=== PATIENT | male | born 1955 | race Asian ===

== ENCOUNTER 2022-06-13 17:35 | Emergency (ER) | payer MEDICARE, MEDICAID, SELFPAY ==
--- NOTE | ~2022-06-13 | XR_ITS ---
EXAMINATION: XR CHEST CLINICAL INFORMATION: Shortness of breath COMPARISON: Chest x-ray 05/25/2020 TECHNIQUE: Frontal view of the chest was obtained. FINDINGS: No airspace consolidation, pleural effusion, or pneumothorax. Similar lobulated extrapleural soft tissue thickening or fat deposition along the lower right hemithorax laterally. Cardiac silhouette appears borderline to mildly enlarged. No evidence pulmonary edema. No acute osseous injury. XR/XR chest 1V IMPRESSION: 1. No acute pulmonary process.
--- NOTE | ~2022-06-13 | CT_ITS ---
EXAMINATION: CT ABDOMEN AND PELVIS WITHOUT CONTRAST CLINICAL INFORMATION: Right flank/lower back pain. History of stones. COMPARISON: None TECHNIQUE: Multidetector volumetric imaging was performed from the superior aspect of the liver through the pubic symphysis. Sagittal and coronal reformatted images were obtained on the technologist's workstation. This CT examination was performed using dose optimization techniques as appropriate, variously including the following: *Automated exposure control *Adjustment of mA and/or kV according to patient size (this includes techniques or standardized protocols for targeted exams where dose is matched to indication/reason for exam; i.e. extremities or head) *Use of iterative reconstruction technique DLP: 478 mGy-cm FINDINGS: LUNG BASES: Mild left basilar subsegmental atelectasis. Prominent motion artifact at the lung bases. Small fat-containing Bochdalek hernia on the left side. LIVER, GALLBLADDER, AND BILIARY TREE: Normal hepatic attenuation. Slight prominence of the left liver lobe and caudate. No liver lesion. No biliary ductal dilation. The gallbladder is unremarkable with no evidence of radiopaque gallstones, gallbladder wall thickening, or obvious pericholecystic inflammatory changes. PANCREAS: Unremarkable. SPLEEN: Unremarkable. ADRENAL GLANDS: 2.4 cm left adrenal nodule with attenuation value of 0 Hounsfield units consistent with a lipid rich adenoma. Normal right adrenal gland. KIDNEYS AND URETERS: 6 mm nonobstructing right lower pole renal calculus. No other radiodense renal calculi. No hydronephrosis. No ureteral calculi. No renal lesion. No perinephric collections. BLADDER: Unremarkable. GASTROINTESTINAL TRACT: Small hiatal hernia. No dilated bowel loops. No bowel wall thickening. Normal appendix. No ascites or free air. ABDOMINAL WALL: No significant hernia is appreciated. LYMPH NODES: No lymphadenopathy. VASCULAR: Normal caliber abdominal aorta. Mild atherosclerotic vascular calcifications. PELVIC VISCERA: Unremarkable. OSSEOUS STRUCTURES: No acute fracture or suspicious osseous lesion. Minimal multilevel degenerative disc disease with preserved intervertebral disc heights. CT/CT abdomen pelvis wo IV con IMPRESSION: 1. 6 mm nonobstructing right lower pole renal calculus. No ureteral calculi or hydronephrosis. 2. No acute intra-abdominal process identified. 3. Morphologic features of the liver, which could represent underlying hepatocellular disease or fibrosis. Correlate clinically. 4. Incidental 2.4 cm lipid rich left adrenal adenoma.
--- NOTE | 2022-06-13 17:49 | ED_ITS ---
HPI - General Adult General Chief complaint: Abdominal Pain Stated complaint: R flank pain Time Seen by Provider: 06/13/22 17:48 Source: patient Mode of arrival: ambulatory Limitations: language barrier (Swedish conche operator used ) History of Present Illness HPI narrative: 66-year-old male no known medical history presents to the emergency department with complaints of right-sided flank pain/back pain x2 days worsening. Patient tells me that the pain is localized to his right flank, is intermittent and severe in nature, does not radiate. Patient tells me that he had difficult he is urinating due to the pain and was having difficulty initiating his urinary stream. He tells me that he has had a kidney stone in the past which has required medical management. He denies any back trauma or back surgeries, and denies IV drug abuse. He tells me that this started suddenly without trauma. He denies any recent falls. Unable to tell me what makes the pain better or worse. Patient is wearing a back brace he says it helps the pain a little bit however the pain is still present. Patient also notes that he has been feeling short of breath both at rest and with exertion over the past month, however nothing new. He denies chest pain, nausea, vomiting, abdominal pain, testicular pain, dysuria, headache, dizziness, vision changes, trauma. Urinary/bowel incontinence/retention, saddle paresthesias, numbness or tingling. Related Data Previous Rx's Medication Instructions Recorded cyclobenzaprine 10 mg tablet 10 mg PO BEDTIME PRN muscle spasm 06/13/22 #7 tabs lidocaine 5 % topical patch 1 patch topical DAILY PRN pain #15 06/13/22 ea prednisone 20 mg tablet 20 mg PO DAILY 5 days #5 tabs 06/13/22 Allergies Allergy/AdvReac Type Severity Reaction Status Date / Time No Known Allergies Allergy Unverified 06/25/20 17:00 [No Known Allergies*] Review of Systems Review of Systems: Constitutional : No Weight loss, No Fever, No Chills, No Fatigue, No Malaise ENT/Mouth : No sore throat, No Rhinorrhea Eyes: No Eye Pain, No Swelling, No Redness Cardiovascular : No Chest Pain, + SOB, No Dyspnea on Exertion, No Orthopnea, No Edema, No Palpitations Respiratory : No Cough, No Sputum, No Wheezing Gastrointestinal : No Nausea, No Vomiting, No Diarrhea, No Constipation, No abdominal Pain, No Hematochezia, No Melena Genitourinary : No Dysuria, No Urinary Frequency, No Hematuria, + difficulty voiding Musculoskeletal : No joint pain, No Myalgias, No Joint Swelling, + right flank pain Skin : No Skin Lesions, No rash Neuro : No Weakness, No Numbness, No Dizziness, No Headache Psych : No Anxiety/Panic, No Depression All other systems reviewed and are negative Yes all other systems are reviewed and are negative [facility] Past Medical History Medical History (Updated 06/13/22 @ 20:14 by GUEVARA Rondon) No known health problems Social History Social History Patient Tobacco Use Status: Current everyday Tobacco user Advance Directives: No Advance Directives Information Provided: No Physical Exam ED Vital Signs: Vital Signs - 24 hr 06/13/22 17:54 06/13/22 21:51 Temperature 97.9 F 98.6 F Pulse Rate 57 52 Respiratory Rate 16 20 Blood Pressure 156/57 H 146/61 H Pulse Oximetry 97 96 Oxygen Delivery Method Room Air Room Air BMI result Body Mass Index 25.8 Vital signs stable Appearance: Alert.? Oriented X3.? No acute distress.? Head: Normocephalic, atraumatic, no step-offs or deformities Eyes: Pupils equal, round and reactive to light.? ENT: Pharynx normal.? Neck: Normal inspection.? Neck supple.? CVS: Normal heart rate and rhythm.? Pulses normal.? Respiratory: No respiratory distress.? Breath sounds normal.? Abdomen: Soft and nontender.?Slightly distended. Skin: Skin warm and dry.? Normal skin color.? Normal skin turgor.? Extremities: No lower extremity edema.? No calf ttp. 5/5 strength to bilateral upper and lower extremities. 2+ patellar reflexes equal bilateral. Back: No midline tenderness, no C-spine tenderness, full range of motion, + R. CVA tenderness Neuro: Oriented X 3.? No motor deficit.? No sensory deficit. CN 2-12 intact . No saddle paresthesias. Course Reevaluation(s) Reevaluation #1: Patient with slight leukocytosis, and a microcytic anemia, patient noted to have low platelets chronically, patient with no acute electrolyte abnormalities requiring intervention, troponin negative, BNP within normal limits, urine clean, covid negative. CT of abd and pelvis pending and Cxr pending. Time: 19:02 Reevaluation #2: Chest x-ray with no acute findings. CT of the abdomen and pelvis with a 6 mm nonobstructing right lower pole renal stone however no stone in the ureters, no signs of hydronephrosis. Morphalogical features of the liver which could represent hepatocellular disease, attached CT results to patient's discharge advised him to follow-up with PCP, there is also a incidental 2.4 cm lipid rich left adrenal adenoma. Again discussed with patient advised him to follow-up with PCP. Is likely that this patient has passed a kidney stone, will send patient home with prednisone, Lidoderm patch, cyclobenzaprine. At this time I feel comfortable discharge home with prompt PCP follow-up. To note, at time of discharge patient telling me he feels much better, ambulating with steady gait normal coordination. Nephew will pick patient up in the AM. Discussed diagnosis and treatment plan with patient and family member. At this time I feel comfortable discharge. At this time patient will be placed in physician observation to allow more time for family members to pick patient up. At time observation was started patient common cooperative no acute distress will continue to monitor. Time: 20:10 Medical Decision Making [facility] Narrative Medical decision making narrative: 1800 66 year old male presents to ED w/ complaints of decreased urinary stream, right-sided flank pain/right sided back pain x2 days worsening. History of kidney stones. An conche operator was used to communicate with patient in Swedish. Physical examination with reproducible pain with palpation to the right flank, positive CVA tenderness. Regular rate and rhythm. Lungs clear. Abdomen soft, nontender, slightly distended with normoactive bowel sounds. Neuro exam nonfocal. Vital signs are stable. No midline back tenderness. Likely kidney stone or lumbar strain/sprain, unlikely epidural abscess, cauda equina. Plan at this time is basic labs, imaging, urine. Will give patient something for pain. Will also obtain a cardiac workup due to patient's shortness of breath and patient's age. Medical Records Medical records reviewed: Yes I reviewed the patient's medical records. Lab Data Lab results reviewed: Yes I reviewed the patient's lab results. Result diagrams: 06/13/22 18:23 06/13/22 18:24 Labs: Lab Results 06/13/22 06/13/2206/13/22 Range/Units 18:23 18:24 18:24 WBC 11.0 H (4.8-10.8) X10*3/uL RBC 5.06 (4.60-5.80) X10*6/uL Hgb 10.9 L (14.0-18.0) g/dl Hct 33.5 L (42.0-52.0) % MCV 66.2 L (80.0-98.0) fL MCH 21.5 L (27.0-33.0) pg MCHC 32.5 (31.0-36.0) g/dl RDW 15.5 (11.0-16.0) % Plt Count 122 L (160-400) X10*3/uL MPV Not Reportable Immature Gran % (Auto) 0.5 H (0.0-0.4) % Neut % (Auto) 69.8 (45-73) % Lymph % (Auto) 19.2 L (20-40) % Gilchrist % (Auto) 9.3 (2-11) % Eos % (Auto) 0.8 (0-4) % Baso % (Auto) 0.4 (0-2) % Lymph # (Auto) 2.1 (1.2-4.9) X10*3/uL Gilchrist # (Auto) 1.0 (0.1-1.2) X10*3/uL Eos # (Auto) 0.1 (0.0-0.4) X10*3/uL Baso # (Auto) 0.0 (0.0-0.2) X10*3/uL Abs Immat Gran (auto) 0.06 H (0.00-0.03) X10*3/uL Absolute Neuts (auto) 7.7 (2.0-8.3) x10*3/uL Absolute Nucleated RBC 0.000 (0.0-0.012) X10*3/uL Nucleated RBC % (auto) 0.0 (0.0-0.2) /100WBC Sodium 139 (135-145) mmol/L Potassium 3.8 (3.3-5.1) mmol/L Chloride 103 (96-108) mmol/L Carbon Dioxide 25 (22-29) mmol/L Anion Gap 15 (12-20) BUN 18 H (9-16) mg/dL Creatinine 1.26 (0.5-1.4) mg/dL Estim Creat Clear Calc 49.4 Estimated GFR 57 Random Glucose 149 H (60-115) mg/dL Calcium 9.0 (8.4-10.2) mg/dL Magnesium 1.6 (1.6-2.6) mg/dL Total Bilirubin 1.0 (0.0-1.0) mg/dL AST 24 (5-37) U/L ALT 42 H (0-40) U/L Alkaline Phosphatase 96 (39-117) U/L Troponin I High Sens (<3.5-35.0) ng/L B-Natriuretic Peptide (<100) pg/mL Total Protein 8.1 H (6.5-8.0) g/dL Albumin 4.1 (3.5-5.0) g/dL Lipase 43 (8-78) U/L Urine Color Urine Appearance Urine pH (5.0-9.0) Ur Specific [place]air (1.005-1.025) Urine Protein (Neg-Trace) mg/dL Urine Glucose (UA) (Negative) mg/dL Urine Ketones (Negative) mg/dL Urine Blood (Negative) Urine Nitrite (Negative) Ur Leukocyte Esterase (Negative) COVID-19 (SERA) Negative (Negative) COVID-19 Clin Com See Note 06/13/22 06/13/22 Range/Units 18:24 18:24 WBC (4.8-10.8) X10*3/uL RBC (4.60-5.80) X10*6/uL Hgb (14.0-18.0) g/dl Hct (42.0-52.0) % MCV (80.0-98.0) fL MCH (27.0-33.0) pg MCHC (31.0-36.0) g/dl RDW (11.0-16.0) % Plt Count (160-400) X10*3/uL MPV Immature Gran % (Auto) (0.0-0.4) % Neut % (Auto) (45-73) % Lymph % (Auto) (20-40) % Gilchrist % (Auto) (2-11) % Eos % (Auto) (0-4) % Baso % (Auto) (0-2) % Lymph # (Auto) (1.2-4.9) X10*3/uL Gilchrist # (Auto) (0.1-1.2) X10*3/uL Eos # (Auto) (0.0-0.4) X10*3/uL Baso # (Auto) (0.0-0.2) X10*3/uL Abs Immat Gran (auto) (0.00-0.03) X10*3/uL Absolute Neuts (auto) (2.0-8.3) x10*3/uL Absolute Nucleated RBC (0.0-0.012) X10*3/uL Nucleated RBC % (auto) (0.0-0.2) /100WBC Sodium (135-145) mmol/L Potassium (3.3-5.1) mmol/L Chloride (96-108) mmol/L Carbon Dioxide (22-29) mmol/L Anion Gap (12-20) BUN (9-16) mg/dL Creatinine (0.5-1.4) mg/dL Estim Creat Clear Calc Estimated GFR Random Glucose (60-115) mg/dL Calcium (8.4-10.2) mg/dL Magnesium (1.6-2.6) mg/dL Total Bilirubin (0.0-1.0) mg/dL AST (5-37) U/L ALT (0-40) U/L Alkaline Phosphatase (39-117) U/L Troponin I High Sens 5.6 (<3.5-35.0) ng/L B-Natriuretic Peptide 95 (<100) pg/mL Total Protein (6.5-8.0) g/dL Albumin (3.5-5.0) g/dL Lipase (8-78) U/L Urine Color Yellow Urine Appearance Clear Urine pH 7.0 (5.0-9.0) Ur Specific [place]air 1.015 (1.005-1.025) Urine Protein Negative (Neg-Trace) mg/dL Urine Glucose (UA) Negative (Negative) mg/dL Urine Ketones Negative (Negative) mg/dL Urine Blood Negative (Negative) Urine Nitrite Negative (Negative) Ur Leukocyte Esterase Negative (Negative) COVID-19 (SERA) (Negative) COVID-19 Clin Com ECG Data Attestation: I personally reviewed and interpreted this ECG as follows: Prior ECG tracings: available for review Interpretation: Ventricular rate of 53, [place] normal, QRS normal, QT/QTC normal. EKG with sinus bradycardia, no ST elevations or inversions concerning for ischemia, no significant changes when compared to EKG from 05/25/2020. Critical Care Time Critical Care Time Critical Care Time: No Discharge Plan Discharge Clinical Impression: Flank pain, Lumbar strain, Kidney stone, Shortness of breath Patient Disposition: Home, Self-Care Instructions: Abdominal Pain (ED) Additional Instructions: Take your medications as prescribed. If you were prescribed antibiotics today, it is important that you take your medication to their entirety, do not skip any doses, do not finish them early. Follow-up with your primary care provider this week. Return to the emergency department with new or worsening symptoms. Such as fevers, chills, chest pain, shortness of breath, nausea, vomiting, dizziness, headache, vision changes, lethargy In case of emergency call 911 You can take ibuprofen every 6 hours, Tylenol every 4 hours as needed for pain or discomfort. Cyclobenzaprine is a muscle relaxer that has been sent to your pharmacy, please take as prescribed, use caution with driving or operating machinery as it can make you sleepy. It is possible that you passed a kidney stone. lebathnam robsa anak beebe vechchobanhchea . brasenbae anak trauv ban chenh vechchobanhchea thnam ang ti bi yo tich now [facility] steve jennifer rumelissa saajuankhjenny del anak trauv lebathnam robsa anak aoy ban penhlenh kom romlng kamrit namuoy komaoy steve [facility] . tamdan cheamuoy anak phtal seva thetam bathm robsa anak now [facility] . tralbtow phnek sangkroh bantean bhavin cheamuoynung rokosanhnhea mei ryy bette akrak tow . dauchchea ktaw khluon nheak chhutroung dakadangheum khlei changaor kauot vilmouk chhukbeal phlasa btau r rusty [facility] . knongokarnei mean asann saum toursapt tow lekh 911 anak ach lebathnam Ibuprofen riengreal 6 maong mtong Tylenol riengreal 4 maong mtong beebe tamrouvkar samreab karchhucheab ryy min sruol . Cycl obenzaprine kuchea thnam banthour sachdom del trauv ban banhchoun tow aosathasthan robsa anak saum ttuol yk beebe vechchobanhchea brae rusty brongobraytn cheamuoynung rusty baekabr ryy measain bratebatte rusty proh steve ach thveu aoy anak ngngouykeng . steve ach towruoch del anak ban chhlang kruosa knong tamrongnom . CT/CT abdomen pelvis wo IV con IMPRESSION: ? 1. 6 mm nonobstructing right lower pole renal calculus. No ureteral calculi or hydronephrosis. 2. No acute intra-abdominal process identified. 3. Morphologic features of the liver, which could represent underlying hepatocellular disease or fibrosis. Correlate clinically. 4. Incidental 2.4 cm lipid rich left adrenal adenoma.? Prescriptions: New cyclobenzaprine 10 mg tablet 10 mg PO BEDTIME PRN (Reason: muscle spasm) Qty: 7 0RF lidocaine 5 % adhesive patch,medicated 1 patch topical DAILY PRN (Reason: pain) Qty: 15 0RF Rx Instructions: leave on most painful area for up to 12 hrs prednisone 20 mg tablet 20 mg PO DAILY 5 Days Qty: 5 0RF Referrals: Physician,Unknown J [Primary Care Provider] - 2 days Stand Alone Forms: Work/School Release
[2022-06-13 17:54] VITALS: BP 156/57; PULSE 57; RESP 16; TEMP 36.6; O2SAT 97; O2SAT 98; BMI 25.8
--- NOTE | 2022-06-13 18:06 | ECG_ITS ---
Test Reason : SHORTNESS OF BREATH Blood Pressure : / mmHG Vent. Rate : 053 BPM Atrial Rate : 053 BPM P-R Int : 160 ms QRS Dur : 086 ms QT Int : 442 ms P-R-T Axes : 040 011 045 degrees QTc Int : 414 ms Sinus bradycardia Minimal voltage criteria for LVH, may be normal variant ( R in aVL ) Nonspecific T wave abnormality Abnormal ECG When compared with ECG of 25-MAY-2020 17:14, Nonspecific T wave abnormality, worse in Lateral leads Referred By: Nury Lawrence Electronically Signed By:BULMARO KNOTT
[2022-06-13 18:29] LABS: MANUAL DIFF FLAG NO
[2022-06-13 18:36] LABS: Appearance Urine Clear; Color Urine Yellow; Glucose Urine UA Negative (Negative); Leukocyte Esterase Urine Negative (Negative); Nitrite Urine Negative (Negative); Specific Gravity - Urine 1.015 (1.005-1.025); Urine Blood Negative (Negative); Urine Ketones Negative (Negative); Urine Protein Negative (Neg-Trace)
[2022-06-13 18:43] LABS: Hemoglobin 10.9 g/dl (14.0-18.0); SCAN SMEAR FLAG 1
[2022-06-13 18:45] LABS: Basophils Percent Auto 0.4 % (0-2); Eosinophils Absolute Auto 0.1 X10*3/uL (0.0-0.4); Eosinophils Percent Auto 0.8 % (0-4); Hematocrit 33.5 % (42.0-52.0); Imm Gran Abs Auto 0.06 X10*3/uL (0.00-0.03); Imm Gran Pct Auto 0.5 % (0.0-0.4); Lymphocytes Absolute Auto 2.1 X10*3/uL (1.2-4.9); Lymphocytes Percent Auto 19.2 % (20-40); Mean Corpuscular HGB Conc 32.5 g/dl (31.0-36.0); Mean Corpuscular Hemoglobin 21.5 pg (27.0-33.0); Mean Corpuscular Volume 66.2 fL (80.0-98.0); Monocytes Percent Auto 9.3 % (2-11); Neutrophils Absolute Auto 7.7 x10*3/uL (2.0-8.3); Neutrophils Percent Auto 69.8 % (45-73); Platelet Count 122 X10*3/uL (160-400); Red Blood Count 5.06 X10*6/uL (4.60-5.80); Red Cell Distribution Width 15.5 % (11.0-16.0)
[2022-06-13 18:46] LABS: Alanine Aminotransferase 42 U/L (0-40); Albumin Level 4.1 g/dL (3.5-5.0); Alkaline Phosphatase 96 U/L (39-117); Anion Gap 15 (12-20); Aspartate Amino Transferase 24 U/L (5-37); Blood Urea Nitrogen 18 mg/dL (9-16); COVID-19 Test Negative (Negative); Carbon Dioxide 25 mmol/L (22-29); Chloride 103 mmol/L (96-108); Creatinine Clr Calc Pharmacy 49.4; Estimated Glomerular Filt Rate 57; Glucose Random 149 mg/dL (60-115); IDNOW Serial# 55D5AD1C; Lipase 43 U/L (8-78); Magnesium 1.6 mg/dL (1.6-2.6); Potassium 3.8 mmol/L (3.3-5.1); Sodium 139 mmol/L (135-145); Total Protein 8.1 g/dL (6.5-8.0)
[2022-06-13 18:50] LABS: B Type Natriuretic Peptide 95 pg/mL (<100); Troponin-I High Sensitivity 5.6 ng/L (<3.5-35.0)
[2022-06-13 18:50] LABS: PLT ABN DIST 1
[2022-06-13] MEDS: Morphine Sulfate 4 MG/ML CARTRIDGE IVPUSH (18:59)
[2022-06-13] MEDS: Lidocaine 4 % Patch ADH..PATCH 1 PATCH TRANSDERMA (18:59)
[2022-06-13] MEDS: 0.9 % Sodium Chloride 1,000 ML 999 ML IV (20:35)
[2022-06-13 21:51] VITALS: BP 146/61; PULSE 52; RESP 20; TEMP 37; O2SAT 96
--- NOTE | 2022-06-13 22:53 | PC.NURSE ---
PT TRIALED FOR AMBULATION, SHUFFLING GAIT, PT APPEARS UNSTEADY THOUGH ATTRIBUTE TO PAIN, GRIMACING.
--- NOTE | 2022-06-13 23:22 | PC.NURSE ---
MAE GRANT SAID NOT TO DO BLADDER SCAN .
[2022-06-13 23:26] VITALS: BP 146/61; PULSE 62; RESP 16; TEMP 36.6; O2SAT 98
--- NOTE | 2022-06-14 00:16 | PC.NURSE ---
Assumed care of pt. at 2300. Pt. sleeping in room, under no apparent distress at this time. Will continue to monitor.
[2022-06-14 06:00] VITALS: BP 139/52; PULSE 47; RESP 16; TEMP 36.5; O2SAT 97
[2022-06-14 08:48] VITALS: BP 141/65; PULSE 47; RESP 16; TEMP 36.6; O2SAT 97
--- NOTE | 2022-06-14 10:24 | PC.NURSE ---
pt's nephew called to report that he is on his way to pick him up.
== END 2022-06-14 11:30 | disposition home or self-care (01) ==
PROVIDERS: Physician Assistant; Emergency Provider Internal Medicine
DX: N20.0 Calculus of kidney (principal); R10.9 Unspecified abdominal pain; R06.02 Shortness of breath; F17.200 Nicotine dependence, unspecified, uncomplicated
CPT/HCPCS: 36415; 51798; 71045; 74176; 80053; 81003; 83690; 83735; 83880; 84484; 85025; 87635; 93005; 96361; 96374; 99284; 99285; J2270